=== PATIENT | male | born 1950 | race Caucasian/White ===

== ENCOUNTER 2017-08-26 07:46 | Day surgery (SDC) | payer MEDICARE, OTHER ==
[~2017-08-26 07:46] MED LIST: EPINEPHRINE INJ 1 MG/10 ML DISP.SYRIN ONE; FENTANYL CITRATE INJ/PF 100 MCG/2 ML AMPUL ONE; FLUMAZENIL INJ 0.5 MG/5 ML VIAL ONE; GLUCAGON,HUMAN RECOMB 1 MG INJ ONE; GLYCOPYRROLATE INJ 0.4 MG/2 ML VIAL ONE; NALOXONE HCL INJ/PF 0.4 MG/1 ML SDV ONE; ONDANSETRON HCL INJ/PF 4 MG/2 ML SDV ONE
[2017-08-26] MEDS: MIDAZOLAM 2 MG/2 ML INJ ONE ×2 (09:35→09:56)
--- NOTE | 2017-08-26 10:07 | PDOC DISCHARGE SUMMARY ---
Discharge Summary (SDC) - Discharge Final Diagnosis: 1. Personal history of colon polyps 2. Family history of colon cancer Date of Surgery: 08/26/17 Discharge Date: 08/26/17 Condition: Good Treatment or Instructions: [address] [address] POST ENDOSCOPY DISCHARGE INSTRUCTIONS 1. Diet: Start clear liquids that a regular diet as tolerated. 2. Resume all preoperative medications. All oral anticoagulants and aspirins can be resumed 24 hours after procedure. 3. If a polypectomy was performed some bleeding per rectum may occur. This should stop within 3 days. If not, please contact the office. 4. If you had a colonoscopy you may experience some bloating and delayed return of normal bowel function for several days, your regular bowel movement pattern should resume within a week. 5. [facility] at to make an appointment with Dr. Ivory for 1 to 3 weeks following procedure. 6. If you have any questions or concerns regarding your care,treatment plan or follow up, please contact our office. 7. Per clinical guidelines we recommend you undergo a repeat colonoscopy in 6 years. Discharge Diet: As Tolerated Discharge Activity: Activity As Tolerated Home Care Assistance: None Needed Report the Following to Your Physician Immediately: Shortness of Breath, Increase in Pain, Fever over 101 Degrees
--- NOTE | 2017-08-26 10:10 | Operative Report ---
Operative Report DATE OF SURGERY: 08/26/17 PREOPERATIVE DIAGNOSIS: 1. Personal history of colon polyps. 2. Family history colon cancer POSTOPERATIVE DIAGNOSIS: Same with. 1. Rare diverticulosis. 2. Internal hemorrhoids. OPERATION: 1. Total colonoscopy to cecum with photodocumentation. SURGEON: ADONAY ROCKWELL ANESTHESIA: Moderate Sedation TISSUE REMOVED OR ALTERED: None COMPLICATIONS: None ESTIMATED BLOOD LOSS: none INTRAOPERATIVE FINDINGS: Below PROCEDURE: Obtaining informed consent the patient was taken from the preoperative holding area to the main endoscopy suite where monitoring devices were attached to the patient. Plan and surgical timeout were conducted The patient was placed in the left lateral decubitus position with knees to chest. A perianal examination was performed. There was no visible or palpable anorectal pathology. Sphincter tone was felt to be normal. The flexible adult colonoscope was advanced through the anal rectal canal, all the way to the cecum. Visualization of the cecum was achieved and the ileocecal valve, the appendiceal orifice and transillumination of the anterior abdominal wall. This was an excellent study on the well-prepped bowel. However there was some residual yellow-green stool with particulate matter which aspirated easily. The colonoscope was withdrawn slowly and methodically checked and the mucosa carefully. There was no evidence of tumor, stricture, bleeding or polyp. There 2-3 diverticulosis only. The scope was slowly withdrawn through the anal rectal canal. Complete visualization of the rectum was achieved with photodocumentation. The scope was withdrawn to the patient's anus. The patient tolerated the procedure well and was taken to the recovery area in stable condition. Follow-up colonoscopy will be recommended in 6 years, or sooner if symptoms develop in this above average risk patient for colorectal carcinoma.
[2017-08-26 11:00] VITALS: BP 121/75
== END 2017-08-26 10:55 | disposition home or self-care (01) ==
LOC: OROUT 07:46
PROVIDERS: ATTEND Surgery
PROC: 0DJD8ZZ Inspection of Lower Intestinal Tract, Via Natural or Artificial Opening Endoscopic (ICD-10-PCS; principal; 2017-08-26 09:00)
DX: Z12.11 Encounter for screening for malignant neoplasm of colon (principal); K57.30 Diverticulosis of large intestine without perforation or abscess without bleeding; K64.8 Other hemorrhoids; Z86.010 Personal history of colon polyps; Z80.0 Family history of malignant neoplasm of digestive organs; Z86.79 Personal history of other diseases of the circulatory system; Z79.82 Long term (current) use of aspirin; Z79.899 Other long term (current) drug therapy
CPT/HCPCS: 45378; J2250; J3010; J0171; J1610; J2310; J2405; J3490

== ENCOUNTER 2018-10-02 10:26 | Emergency (ER) | payer MEDICARE, OTHER ==
[2018-10-02] MEDS ORDERED: LIDOCAINE 2% URO-JET 5 ML KIT MM ONE (10:37)
--- NOTE | 2018-10-02 10:56 | ER Document Report ---
HPI - HPI Time Seen by Provider: 10/02/18 10:43 Pain Level: 5 Notes: Patient is a 68-year-old male with a history of previous A. fib status post ablation and BPH who presents the emergency department complaining of voiding small amounts and dysuria. Patient states that this began over the last 24 hours. He had a urethral lift procedure performed by urology on Wednesday due to enlarged prostate. Patient states that since then he has had some hematuria which he states is supposed to be normal. His last normal urination was more than 24 hours ago. Patient states that he does have the urge to urinate, but feels like he cannot get all the urine out. He called his urologist who told him to come here for a catheter placement and to see the urologist again tomorrow. He otherwise feels well. He is eating and drinking without difficulties. He is having normal bowel movements. Denies drug allergies. Denies any headache, fever, neck pain, URI, sore throat, chest pain, palpitations, syncope, cough, shortness of breath, wheeze, dyspnea, abdominal pain, nausea/vomiting/diarrhea, back pain, saddle anesthesia, or rash. - ROS Systems Reviewed and Negative: Yes All other systems reviewed and negative Past Medical History - Social History Smoking Status: Never Smoker Family History: Reviewed & Not Pertinent - Past Medical History Cardiac Medical History: Reports: Hx Coronary Artery Disease Denies: Hx Heart Attack, Hx Hypertension Pulmonary Medical History: Denies: Hx Asthma, Hx Bronchitis, Hx Pneumonia Neurological Medical History: Denies: Hx Cerebrovascular Accident, Hx Seizures GI Medical History: Denies: Hx Hepatitis, Hx Hiatal Hernia, Hx Ulcer Musculoskeletal Medical History: Reports Hx Arthritis Infectious Medical History: Denies: Hx Hepatitis Past Surgical History: Denies: Hx Open Heart Surgery, Hx Pacemaker - Immunizations Hx Diphtheria, Pertussis, Tetanus Vaccination: Yes Hx Pneumococcal Vaccination: 04/20/16 Vertical Provider Document - CONSTITUTIONAL Agree With Documented VS: Yes Notes: PHYSICAL EXAMINATION: GENERAL: Well-appearing, well-nourished and in no acute distress. LUNGS: Breath sounds clear to auscultation bilaterally and equal. No wheezes ra les or rhonchi. HEART: Regular rate and rhythm without murmurs, rubs, gallops. ABDOMEN: Soft, nontender, nondistended abdomen. No guarding, no rebound. No masses appreciated. Normal bowel sounds present. No CVA tenderness bilaterally. : deferred Musculoskeletal: FROM to passive/active. Strength 5+/5. Extremities: No cyanosis, clubbing, or edema b/l. Peripheral pulses 2+. Capillary refill less than 3 seconds. NEUROLOGICAL: Normal speech, normal gait. PSYCH: Normal mood, normal affect. SKIN: Warm, Dry, normal turgor, no rashes or lesions noted. - INFECTION CONTROL TRAVEL OUTSIDE OF THE [place] IN LAST 30 DAYS: No Course - Re-evaluation Re-evalutation: 10/02/18 11:44 Patient is an afebrile, well-hydrated, 68-year-old male who presents the emergency department with UTI and dysuria most likely secondary to obstruction from prostate and/or inflammation status post procedure. Vitals are acceptable without significant tachycardia, tachypnea, or hypoxia. PE is otherwise unremarkable. His abdomen is soft and nontender. He is nontoxic-appearing and is tolerating p.o. without difficulty. No saddle anesthesia. Patient attempted urination for S and only yielded 10 cc or less of urine. A Aleman catheter was placed and more than 400 cc's of urine was obtained. Aleman was left in place and leg bag provided. See UA, possible UTI. UC pending. I did speak with Dr. Dolan, Uro, who recommended keflex. No other labs or imaging warranted at this time otherwise. Low suspicion/risk for acute appendicitis, bowel obstruction, acute cholecystitis, perforated diverticulitis, incarcerated hernia, pancreatitis, perforated ulcer, peritonitis, sepsis, testicular torsion, or other systemic emergent condition at this time. Patient is aware that his condition can change from initial presentation and he needs to monitor symptoms closely and seek medical attention if any acute changes. Conservative measures otherwise for symptoms. Recheck with your urologist in the next 1-2 days. Return to the ED with any worsening/concerning symptoms otherwise as reviewed in discharge. Patient is in agreement. - Vital Signs Vital signs: Temp Pulse Resp BP Pulse Ox 98.1 F 79 16 146/82 H 97 10/02/18 10:44 10/02/18 10:44 10/02/18 10:44 10/02/18 10:44 10/02/18 10:44 Discharge - Discharge Clinical Impression: Dysuria, Acute UTI (urinary tract infection) Condition: Stable Disposition: HOME, SELF-CARE Additional Instructions: Push fluids (i.e. water, cranberry juice) Proper hygenic technique Keep the skin clean Tylenol/ibuprofen as needed Follow-up with your urologist in the next 1-2 days Return to the ED with any worsening symptoms and/or development of fever, headache, chest pain, palpitations, syncope, shortness of breath, trouble breathing, abdominal pain, n/v/d, or other worsening symptoms that are concerning to you. Prescriptions: Cephalexin Monohydrate [Keflex 500 mg Capsule] 500 mg PO TID #21 capsule Forms: Elevated Blood Pressure Referrals: [facility] [Provider Group] - Follow up tomorrow
[2018-10-02 11:22] LABS: AMORPHOUS SEDIMENT,URINE 1+ /HPF; APPEARANCE,URINE TURBID; BILIRUBIN,URINE NEGATIVE (NEGATIVE); GLUCOSE, URINE 50 mg/dL (NEGATIVE); KETONES,URINE NEGATIVE (NEGATIVE); LEUKOCYTE ESTERASE,URINE NEGATIVE (NEGATIVE); NITRITE,URINE POSITIVE (NEGATIVE); PROTEIN,URINE 100 mg/dL (NEGATIVE); URINE SPECIFIC GRAVITY 1.026
[2018-10-02 11:31] LABS: COLOR,URINE BROWN
[2018-10-02 12:20] VITALS: BP 104/63
== END 2018-10-02 12:18 | disposition home or self-care (01) ==
LOC: ER 10:26
DX: N39.0 Urinary tract infection, site not specified (principal); R31.9 Hematuria, unspecified; N40.0 Benign prostatic hyperplasia without lower urinary tract symptoms; I25.10 Atherosclerotic heart disease of native coronary artery without angina pectoris; Z98.890 Other specified postprocedural states
CPT/HCPCS: 99283; 51702; 87086; 81001; A9270; J3490

== ENCOUNTER 2019-05-16 14:04 | Emergency (ER) | payer OTHER, MEDICARE ==
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
[2019-05-16] MEDS ORDERED: ACETAMINOPHEN 325 MG TABLET PO ONE (15:58)
[2019-05-16] MEDS ORDERED: IBUPROFEN 600 MG TABLET PO ONE (15:58)
[2019-05-16 17:10] VITALS: BP 141/94
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
== END 2019-05-16 17:11 | disposition home or self-care (01) ==
LOC: ER 14:04
DX: S20.212A Contusion of left front wall of thorax, initial encounter (principal); S50.312A Abrasion of left elbow, initial encounter; M54.9 Dorsalgia, unspecified; R07.81 Pleurodynia; M25.522 Pain in left elbow; V87.7XXA Person injured in collision between other specified motor vehicles (traffic), initial encounter; I25.10 Atherosclerotic heart disease of native coronary artery without angina pectoris
CPT/HCPCS: 99283

== ENCOUNTER → 2019-11-20 | Outpatient (CLI) | payer MEDICARE, OTHER ==
[2019-11-20 11:05] LABS: BLOOD UREA NITROGEN 18 mg/dL (7-20)
== END ==
LOC: OD 09:50
PROVIDERS: ATTEND Physician Assistant
DX: Z01.89 Encounter for other specified special examinations (principal)
CPT/HCPCS: 36415; 82565; 84520